=== PATIENT | female | born 1980 | race Caucasian/White ===

== ENCOUNTER 2016-05-12 20:37 | Emergency (ER) | payer BC ==
[~2016-05-12] VITALS: Ht 175.3 cm; Wt 90.5 kg
[~2016-05-12 20:37] MED LIST: NO HOME MEDICATIONS
[2016-05-12 20:40] VITALS: TEMP 97
[2016-05-12] MEDS ORDERED: YAZ 28 3 MG-0.01 TAB PO (20:43)
[2016-05-12] MEDS ORDERED: CELEXA 20MG20 MG/TAB PO (20:43)
[2016-05-12] MEDS ORDERED: NORCO 325 MG-51 TAB PO (22:02)
[2016-05-12] MEDS ORDERED: PREDNISONE20 MG PO (22:02)
[2016-05-12 22:12] VITALS: BP 125/78; PULSE 85
== END 2016-05-12 22:12 | disposition home or self-care (01) ==
LOC: COL.ER 20:37
DX: M46.1 Sacroiliitis, not elsewhere classified (principal); M62.830 Muscle spasm of back

== ENCOUNTER → 2016-11-04 | Outpatient (CLI) | payer BC ==
[~2016-11-04] MED LIST changes: +CELEXA 20MG20 MG/TAB PO; +NORCO 325 MG-51 TAB PO; +PREDNISONE20 MG PO; +YAZ 28 3 MG-0.01 TAB PO
== END ==
LOC: MHCPAIN 10:53
DX: G89.29 Other chronic pain (principal); M47.27 Other spondylosis with radiculopathy, lumbosacral region
CPT/HCPCS: G0463

== ENCOUNTER → 2017-01-15 | Outpatient (CLI) | payer BC | LOC: MHCPAIN 12:31 | DX: G89.29 Other chronic pain (principal); M47.27 Other spondylosis with radiculopathy, lumbosacral region | CPT/HCPCS: G0463 ==